=== PATIENT | female | born 1950 | race Caucasian/White ===

== ENCOUNTER 2017-04-25 20:05 | Emergency (ER) | payer MEDICARE, BC ==
--- NOTE | 2017-04-25 20:22 | EDM.PDOC ---
ED HPI GENERAL MEDICAL PROBLEM - General Chief Complaint: Upper Extremity Injury/Pain Stated Complaint: LEFT MIDDLE FINGER INJURY Time Seen by Provider: 04/25/17 20:10 Source of Information: Reports: Patient History Limitations: Reports: No Limitations - History of Present Illness INITIAL COMMENTS - FREE TEXT/NARRATIVE: 66 YO WF presents to ER with injury to left middle finger. Pt was cutting vegetables and accidentally cut a small portion of her finger tip of her left middle finger. Pt denies any other injury. Pt denies any issue with mobility of her finger. Duration: Hour(s): (1) Location: Reports: Upper Extremity, Left Quality: Reports: Ache Severity: Mild Improves with: Reports: None Worsens with: Reports: None Associated Symptoms: Reports: No Other Symptoms - Related Data Allergies Allergy/AdvReac Type Severity Reaction Status Date / Time No Known Allergies Allergy Verified 05/11/16 09:56 Home Meds: Home Meds Cephalexin [Keflex] 500 mg PO Q6HR #40 cap 04/25/17 [Rx] Review of Systems - Review of Systems Review Of Systems: See Below Constitutional: Reports: No Symptoms Eyes: Reports: No Symptoms Ears: Reports: No Symptoms Nose: Reports: No Symptoms Mouth/Throat: Reports: No Symptoms Respiratory: Reports: No Symptoms Cardiovascular: Reports: No Symptoms GI/Abdominal: Reports: No Symptoms Genitourinary: Reports: No Symptoms Musculoskeletal: Reports: No Symptoms Skin: Reports: Wound (avulsion of finger tip of left middle finger) Neurological: Reports: No Symptoms Psychiatric: Reports: No Symptoms ED EXAM, GENERAL - Physical Exam Exam: See Below Exam Limited By: No Limitations General Appearance: Alert, WD/WN, No Apparent Distress Nose: Normal Inspection, Normal Mucosa, No Blood Throat/Mouth: Normal Inspection, Normal Lips, Normal Teeth, Normal Gums, Normal Oropharynx, Normal Voice, No Airway Compromise Head: Atraumatic, Normocephalic Neck: Normal Inspection, Supple, Non-Tender, Full Range of Motion Respiratory/Chest: No Respiratory Distress, Lungs Clear, Normal Breath Sounds, No Accessory Muscle Use, Chest Non-Tender Cardiovascular: Normal Peripheral Pulses, Regular Rate, Rhythm, No Edema, No Gallop, No JVD, No Murmur, No Rub GI/Abdominal: Normal Bowel Sounds, Soft, Non-Tender, No Organomegaly, No Distention, No Abnormal Bruit, No Mass Back Exam: Normal Inspection, Full Range of Motion, NT Extremities: Normal Inspection, Normal Range of Motion, Non-Tender, Normal Capillary Refill, No Pedal Edema Neurological: Alert, Oriented, CN II-XII Intact, Normal Cognition, Normal Gait, Normal Reflexes, No Motor/Sensory Deficits Psychiatric: Normal Affect, Normal Mood Skin Exam: Warm, Dry, Intact, Normal Color, No Rash, Wound/Incision (avulsion injury to left middle finger) Lymphatic: No Adenopathy ED TRAUMA EXTREMITY PROCEDURES - Laceration/Wound Repair Left Finger Lac/wound length in cm: 0.5 Appearance: Superficial, Clean Distal NVT: Neuro & Vascular Intact Closed with: Other (dressing) Sterile Dressing Applied: Nurse Tetanus Status Addressed: Yes Complications: No Departure - Departure Time of Disposition: 20:27 Disposition: Home, Self-Care 01 Condition: good Clinical Impression: Finger laceration Qualifiers: Encounter type: initial encounter Finger: middle finger Foreign body presence: without foreign body Laterality: left - Discharge Information Prescriptions: Cephalexin [Keflex] 500 mg PO Q6HR #40 cap Instructions: Laceration Care, Adult Referrals: Samantha Wade MD [Primary Care Provider] - - Assessment/Plan Assessment:: 1. avulsion injury to tip of left middle finger Plan: 1. nonadherant dressing to left middle finger 2. tetanus updated 3. keflex 500mg PO Q6 x 10 days for prophylaxis 4. discharge home
[2017-04-25] MEDS ORDERED: Diphtheria,Pertussis(Acell),Tetanus Vaccine 0.5 ML SDV IM ONE (20:30)
[2017-04-25 23:34] VITALS: BP 132/88
== END 2017-04-25 20:50 | disposition home or self-care (01) ==
LOC: KA.ED 20:05
DX: S61.213A Laceration without foreign body of left middle finger without damage to nail, initial encounter (principal); W26.0XXA Contact with knife, initial encounter; Y93.G3 Activity, cooking and baking
CPT/HCPCS: 12001; 90471; 90715; 99283

== ENCOUNTER 2022-04-25 08:51 | Day surgery (SDC) | payer MEDICARE, BC ==
[~2022-04-25 08:51] MED LIST: Lactated Ringers 1,000 ML IV SCH; Sodium Chloride 0.9% 10 ML Syringe FLUSH PRN
[2022-04-25] MEDS ORDERED: Sodium Chloride 0.9% 10 ML Syringe FLUSH PRN (09:00)
[2022-04-25] MEDS: Lactated Ringers 1,000 ML IV SCH (09:49)
[2022-04-25] MEDS ORDERED: Midazolam 1 MG/ML 2 ML SDV ONE (09:58)
[2022-04-25] MEDS ORDERED: Propofol 200 MG/20 ML SDV ONE (09:58)
[2022-04-25 11:06] VITALS: BP 110/64; PULSE 67
[2022-04-25] MEDS ORDERED: Propofol 200 MG/20 ML SDV IV ONE (11:15)
== END 2022-04-25 11:57 | disposition home or self-care (01) ==
LOC: KA.SDS 08:51
PROVIDERS: ATTEND Surgery
DX: D12.3 Benign neoplasm of transverse colon (principal); D12.8 Benign neoplasm of rectum; K57.30 Diverticulosis of large intestine without perforation or abscess without bleeding; K21.9 Gastro-esophageal reflux disease without esophagitis; E03.9 Hypothyroidism, unspecified; E78.00 Pure hypercholesterolemia, unspecified; I10 Essential (primary) hypertension; I38 Endocarditis, valve unspecified; E55.9 Vitamin D deficiency, unspecified; G47.30 Sleep apnea, unspecified; Z88.0 Allergy status to penicillin; Z79.899 Other long term (current) drug therapy; Z90.49 Acquired absence of other specified parts of digestive tract; Z98.890 Other specified postprocedural states
CPT/HCPCS: 00812; J2250; J2704; J7120

== ENCOUNTER 2023-12-05 10:00 | Emergency (ER) | payer MEDICARE, BC ==
[2023-12-05] MEDS ORDERED: Sodium Chloride 0.9% 10 ML Syringe FLUSH PRN (10:05)
[2023-12-05 10:17] LABS: BASOPHILS ABSOLUTE AUTO 0.03 10^3/uL (0.00-0.10); BASOPHILS PERCENT AUTO 0.4 % (0.0-1.0); EOSINOPHILS ABSOLUTE AUTO 0.09 10^3/uL (0.10-0.30); EOSINOPHILS PERCENT AUTO 1.2 % (1.0-3.0); HEMOGLOBIN 13.6 g/dL (12.0-16.0); IMMATURE GRAN ABSOLUTE AUTO 0.01 10^3/uL (0.00-0.50); IMMATURE GRAN PERCENT AUTO 0.1 % (0.0-5.0); LYMPHOCYTES PERCENT AUTO 11.7 % (20.0-40.0); MEAN CORPUSCULAR HEMOGLOBIN 27.2 pg (27.0-31.0); MEAN CORPUSCULAR HGB CONC 33.2 g/dL (32.0-36.0); MEAN PLATELET VOLUME 10.8 fL (7.4-10.4); MONOCYTES ABSOLUTE AUTO 0.45 10^3/uL (0.10-0.80); MONOCYTES PERCENT AUTO 5.9 % (2.0-8.0); NEUTROPHILS PERCENT AUTO 80.7 % (50.0-70.0); PLATELET COUNT,PLT 169 10^3/uL (150-400); RED CELL DISTRIBUTION WIDTH 14.6 % (11.5-14.5); WHITE BLOOD CELL COUNT,WBC 7.68 10^3/uL (5.00-10.00)
[2023-12-05 10:35] LABS: ALANINE AMINOTRANSFERASE,ALT 25 U/L (14-63); ALBUMIN 3.89 g/dL (3.40-5.00); ALKALINE PHOSPHATASE 62 U/L (46-116); ANION GAP 17.2 mmol/L (5-15); ASPARTATE AMNIOTRANSFERASE,AST 21 U/L (15-37); BILIRUBIN TOTAL 1.6 mg/dL (0.2-1.0); BLOOD UREA NITROGEN,BUN 25 mg/dL (7-18); CARBON DIOXIDE,CO2 25.7 mmol/L (21.0-32.0); CHLORIDE,CL 104 mmol/L (98-107); GLUCOSE RANDOM 101 mg/dL (70-140); POTASSIUM,K 3.9 mmol/L (3.5-5.1); PROTEIN TOTAL,TP 7.2 g/dL (6.4-8.2); SODIUM,NA 143 mmol/L (136-145)
[2023-12-05 10:37] LABS: ESTIMATED GFR 59 mL/min (>=60)
[2023-12-05] MEDS: LORazepam 2 MG/ML SDV IVPUSH ONE ×2 (10:44→11:42)
[2023-12-05] MEDS ORDERED: Heparin Sodium/D5W 500 ML IV SCH (10:45)
[2023-12-05 10:46] LABS: MAGNESIUM 1.9 mg/dL (1.8-2.4)
[2023-12-05] MEDS: Heparin Sodium 5,000 Units/ML Vial IVPUSH ONE (10:51)
[2023-12-05] MEDS: HEPARIN SODIUM IV SCH (10:51)
[2023-12-05] MEDS: DEXTROSE IV SCH (10:51)
[2023-12-05] MEDS ORDERED: Heparin Sodium/D5W 250 ML IV SCH (11:00)
[2023-12-05 11:52] VITALS: BP 143/72; PULSE 78
== END 2023-12-05 16:30 ==
LOC: KA.ED 10:00
DX: I21.4 Non-ST elevation (NSTEMI) myocardial infarction (principal); E78.00 Pure hypercholesterolemia, unspecified; E03.9 Hypothyroidism, unspecified; K21.9 Gastro-esophageal reflux disease without esophagitis; Z79.899 Other long term (current) drug therapy; Z88.0 Allergy status to penicillin; Z91.048 Other nonmedicinal substance allergy status; Z91.018 Allergy to other foods
CPT/HCPCS: 36415; 71045; 80053; 83735; 83880; 84484; 85025; 85379; 85730; 93010; 96365; 96366; 96375; 99284; 99285-25; J1644; J2060

== ENCOUNTER 2024-01-13 19:15 | Emergency (ER) | payer MEDICARE, BC ==
[2024-01-13 19:53] LABS: BASOPHILS ABSOLUTE AUTO 0.03 10^3/uL (0.00-0.10); BASOPHILS PERCENT AUTO 0.5 % (0.0-1.0); EOSINOPHILS ABSOLUTE AUTO 0.21 10^3/uL (0.10-0.30); EOSINOPHILS PERCENT AUTO 3.3 % (1.0-3.0); HEMATOCRIT 41.7 % (37.0-47.0); HEMOGLOBIN 13.9 g/dL (12.0-16.0); IMMATURE GRAN ABSOLUTE AUTO 0.01 10^3/uL (0.00-0.50); IMMATURE GRAN PERCENT AUTO 0.2 % (0.0-5.0); LYMPHOCYTES ABSOLUTE AUTO 1.12 10^3/uL (1.00-4.00); LYMPHOCYTES PERCENT AUTO 17.7 % (20.0-40.0); MEAN CORPUSCULAR HGB CONC 33.3 g/dL (32.0-36.0); MEAN CORPUSCULAR VOLUME 81.1 fL (82.0-92.0); MEAN PLATELET VOLUME 9.4 fL (7.4-10.4); MONOCYTES ABSOLUTE AUTO 0.32 10^3/uL (0.10-0.80); MONOCYTES PERCENT AUTO 5.1 % (2.0-8.0); NEUTROPHILS ABSOLUTE AUTO 4.62 10^3/uL (2.50-7.00); NEUTROPHILS PERCENT AUTO 73.2 % (50.0-70.0); PLATELET COUNT,PLT 166 10^3/uL (150-400); RED BLOOD CELL COUNT 5.14 10^6/uL (3.80-5.50); WHITE BLOOD CELL COUNT,WBC 6.31 10^3/uL (5.00-10.00)
[2024-01-13 20:12] LABS: ANION GAP 15.5 mmol/L (5-15); CALCIUM 9.2 mg/dL (8.7-10.3); CARBON DIOXIDE,CO2 27.1 mmol/L (21.0-32.0); CREATININE 0.74 mg/dL (0.51-1.17); EST CRCL DRUG DOSING (CG) 53.55 mL/min; POTASSIUM,K 3.6 mmol/L (3.5-5.1)
[2024-01-13] MEDS: Metoprolol Tartrate 5 MG/5 ML SDV IVPUSH ONE (20:53)
[2024-01-13] MEDS: Labetalol 100 MG/20 ML MDV IVPUSH ONE ×2 (20:59)
[2024-01-13 21:31] VITALS: BP 135/64; PULSE 62
== END 2024-01-13 21:33 | disposition home or self-care (01) ==
LOC: KA.ED 19:15
DX: I10 Essential (primary) hypertension (principal); F41.9 Anxiety disorder, unspecified; K21.9 Gastro-esophageal reflux disease without esophagitis; E78.00 Pure hypercholesterolemia, unspecified; E03.9 Hypothyroidism, unspecified; Z88.0 Allergy status to penicillin; Z91.048 Other nonmedicinal substance allergy status; Z88.8 Allergy status to other drugs, medicaments and biological substances; Z91.09 Other allergy status, other than to drugs and biological substances; Z79.899 Other long term (current) drug therapy; Z90.710 Acquired absence of both cervix and uterus
CPT/HCPCS: 80048; 83880; 84484; 85025; 96374; 99283; J1921; 93005; 93010; 99284